=== PATIENT | male | born 1950 | race Hispanic/Latino ===

== ENCOUNTER 2019-02-27 05:45 | Day surgery (SDC) | payer MEDICARE, OTHER ==
[2019-02-27] MEDS ORDERED: PLAVIX ONE (06:28)
[2019-02-27] MEDS ORDERED: HALFPRIN EC PO ONE ×2 (06:28→06:30)
[2019-02-27] MEDS ORDERED: PLAVIX PO ONE (06:32)
[2019-02-27 07:00] LABS: Basophils # (Auto) 0.1 K/mm3 (0.0-0.1); Basophils % (Auto) 1.1 % (0.0-1.8); Eosinophils # (Auto) 0.1 K/mm3 (0.0-0.4); Eosinophils % (Auto) 2.5 % (0.0-4.3); Hematocrit 40.9 % (35.5-45.6); Hemoglobin 14.2 gm/dl (11.8-15.2); Lymphocytes # (Auto) 1.5 K/mm3 (1.2-5.4); Lymphocytes % (Auto) 26.6 % (13.4-35.0); Mean Corpuscular HGB Conc 35 % (32-34); Mean Corpuscular Volume 89 fl (84-94); Monocytes # (Auto) 0.6 K/mm3 (0.0-0.8); Monocytes % (Auto) 10.3 % (0.0-7.3); Platelet Count 209 K/mm3 (140-440); Red Blood Count 4.58 M/mm3 (3.65-5.03); Red Cell Distribution Width 12.9 % (13.2-15.2)
[2019-02-27] MEDS ORDERED: NACL 0.9% 500 ML 500 ML IV SCH (07:00)
[2019-02-27 07:08] LABS: INR 0.91 (0.87-1.13)
[2019-02-27 07:09] LABS: Partial Thromboplastin Time 22.1 Sec. (24.2-36.6)
[2019-02-27 07:27] LABS: BUN/Creatinine Ratio 19; Blood Urea Nitrogen 23 mg/dL (9-20); Calcium 9.5 mg/dL (8.4-10.2); Hemolysis Index 38
[2019-02-27] MEDS ORDERED: SUBLIMAZE ONE (09:33)
[2019-02-27] MEDS ORDERED: VERSED ONE (09:33)
[2019-02-27] MEDS ORDERED: HEPARIN/NS 5000 UNIT/500ML(CATH LAB) 1,000 ML IR ONE (09:34)
[2019-02-27] MEDS ORDERED: XYLOCAINE 2% INFILTRATI ONE (09:35)
[2019-02-27] MEDS ORDERED: NITROGLYCERIN SYRINGE 3 ML ONE (09:35)
[2019-02-27] MEDS ORDERED: CALAN ONE (09:35)
[2019-02-27] MEDS ORDERED: BABY ASPIRIN PO SCH (10:00)
[2019-02-27] MEDS: HEPARIN 10,000 UNITS/10 ML ONE ×3 (10:01→10:29)
--- NOTE | 2019-02-27 12:05 | Cardiac Catherization Report ---
CARDIAC CATHETERIZATION REFERRING PHYSICIAN: Azael Bennett MD INDICATION FOR PROCEDURE: The patient is a pleasant 68-year-old gentleman who presents for cardiac catheterization, repeat evaluation of intermediate left main disease on catheterization some 7 or 8 months ago. Also, had a PCI of his left circumflex at that time. Risks, benefits, alternatives discussed at length prior to obtaining informed consent. PROCEDURE IN DETAIL: The patient was brought to the catheterization lab in postoperative state, prepped and draped in sterile fashion. Hugo's test in right hand was normal. A 2 mL of 2% lidocaine used to anesthetize the right wrist. A standard 6-[place] hydrophilic sheath used to cannulate the right radial artery via modified Seldinger technique. All exchanges were performed to exchange a J-tip guidewire. JL3.5 catheter was used to engage the left main. No dampening or ventricularization. Cineangiography performed in all projections. JR4 catheter was used to cross the aortic valve under fluoroscopic guidance. Left ventriculography performed in 30 CORONADO and 30 POLISH projections via hand injections, catheter flushed. Manual pullback performed with continuous pressure monitoring. Catheter used to engage the right coronary. No dampening or ventricularization. Cineangiography performed in all projections. At this point, we decided to proceed repeat IVUS of the left main. Additional heparin was given. Abnormal ACT was confirmed. JL3.5 guide used to engage the left main without difficulty. A [place] wire placed into the LAD without difficulty. Multiple passes of the left main, distal left main, ostial LAD and proximal LAD were made: Next, wire and catheter were removed. No complications noted. DATA: Aortic pressure is 120/60, LV pressure is 120, LVEDP of 12 mmHg. Left ventriculography reveals normal systolic performance with estimated ejection fraction of 55-60%. No evidence of aortic stenosis. CORONARY ANATOMY: This is a right dominant system. Right coronary is a moderate sized vessel, courses AV groove, distally bifurcates in the posterior descending and posterolateral branch. No discrete stenosis noted. Left main angiographically has a mild 20% stenosis distally. The left circumflex stent is widely patent, no significant disease there. LAD and diagonal system are widely patent as well, relatively small left system for a man. Multiple passes IVUS revealed mild concentric plaquing in the distal left main. Mean luminal area greater than 7.5 throughout, only mild plaquing. No significant ostial mid disease, ostial LAD without significant disease either. I do not think this ____ anatomically significant lesion. I directly supervised the administration of moderate sedation from 9:58 a.m. to 10:30 a.m. CONCLUSIONS: 1. Mild nonobstructive disease in this right dominant system. 2. Repeat IVUS of intermediate left main disease reveals a mean luminal area of 7.5 throughout. Mild concentric plaquing of the distal left main. No significant disease in the ostial or proximal LAD, patent mid circumflex stent. Normal left ventricular systolic performance with estimated ejection fraction of 55-60%. 3. Normal LVEDP. 4. No evidence of aortic stenosis. At this point, continue aggressive risk factor modification. We will continue to monitor left main over time. He is asymptomatic. No changes at this time. Results of procedure explained to the patient. All questions and concerns were addressed. JOB# [id number] BETHANIE/RUPA
--- NOTE | 2019-02-27 16:14 | Short Stay Summary ---
Short Stay Documentation Date of service: 02/27/19 - History H&P: obtained from office - Allergies and Medications Current Medications: Allergies No Known Allergies Allergy (Unverified 07/14/18 07:10) Home Medications Medication Instructions Recorded Confirmed Last Taken Type Aspirin [Lo-Dose Aspirin EC] 81 mg PO DAILY 07/14/18 02/27/19 02/26/19 History Clopidogrel [Plavix] 75 mg PO QDAY #30 tablet 07/14/18 02/27/19 02/26/19 Rx Glimepiride [Amaryl] 4 mg PO DAILY 07/14/18 02/27/19 02/26/19 History Lisinopril [Zestril] 10 mg PO DAILY 07/14/18 02/27/19 07/13/18 History Red Yeast Rice 2,400 mg PO DAILY 07/14/18 02/27/19 02/26/19 History Rosuvastatin Calcium [Crestor] 40 mg PO DAILY 07/14/18 02/27/19 02/26/19 History Saw [place] 3 cap PO DAILY 07/14/18 02/27/19 02/26/19 History Sitagliptin Phosphate [Januvia] 100 mg PO DAILY 07/14/18 02/27/19 02/26/19 History Tamsulosin [Flomax] 0.4 mg PO QDAY 07/14/18 02/27/19 02/26/19 History Ubidecarenone [Coq-10] 100 mg PO DAILY 07/14/18 02/27/19 02/26/19 History Zolpidem [Ambien] 5 mg PO QHS PRN tablet 07/14/18 Unknown Rx metFORMIN [Glucophage] 1,000 mg PO ONCE 07/14/18 02/27/19 02/26/19 History Dulaglutide [Trulicity] 0.5 ml SQ QWEEK 02/27/19 02/27/19 02/26/19 History - Brief post op/procedure progress note Date of procedure: 02/27/19 Pre-op diagnosis: CAD Post-op diagnosis: same Procedure: [facility] - see dictated cath report Anesthesia: local Estimated blood loss: none Condition: stable - Disposition Condition at discharge: Good Disposition: [id number] TO HOME OR SELFCARE - Discharge Diagnoses (1) CAD (coronary artery disease) Status: Chronic (2) Diabetes Status: Chronic (3) HTN (hypertension) Status: Chronic (4) Hyperlipidemia Status: Chronic (5) Stented coronary artery Status: Chronic Short Stay Discharge Plan Activity: advance as tolerated Diet: low fat, low cholesterol, low salt, diabetic Wound: open to air, keep clean and dry, per your surgeon's advice Follow up with: RADHA MIJARES MD [Primary Care Provider] - 7 Days Forms: CardCath PCI D/C Instructions
[2019-02-27 20:22] VITALS: BP 132/72
== END 2019-02-27 14:45 | disposition home or self-care (01) ==
LOC: CATHLABREC 05:45
PROVIDERS: ATTEND Internal Medicine
DX: I25.10 Atherosclerotic heart disease of native coronary artery without angina pectoris (principal); I10 Essential (primary) hypertension; E11.9 Type 2 diabetes mellitus without complications; E78.5 Hyperlipidemia, unspecified; E78.00 Pure hypercholesterolemia, unspecified; Z98.890 Other specified postprocedural states; Z79.899 Other long term (current) drug therapy; Z79.82 Long term (current) use of aspirin; Z79.84 Long term (current) use of oral hypoglycemic drugs; Z95.5 Presence of coronary angioplasty implant and graft; Z79.01 Long term (current) use of anticoagulants
CPT/HCPCS: 36415; 80048; 85025; 85347; 85610; 85730; 92978; 93005; 93010; 93458; 99156; 99157; C1753; C1769; C1887; C1894; J1644; J2250; J3010; J7040; Q9967